=== PATIENT | female | born 1965 | race Caucasian/White ===

== ENCOUNTER 2017-08-21 17:46 | Emergency (ER) | payer BC, OTHER ==
[~2017-08-21] VITALS: Ht 160 cm; Wt 96.5 kg
[~2017-08-21 17:46] MED LIST: ELAVIL50 MG PO; FIORICET,ESG1 TABLET PO; PREVACID 24HR15 MG PO; REGLAN10 MG PO; WELLBUTRIN100 MG PO
[2017-08-21 18:02] VITALS: BP 131/85
[2017-08-21 18:31] LABS: HEMATOCRIT 42.8 % (36.0-46.0); HEMOGLOBIN 14.8 G/DL (11.9-15.5); MCHC 34.6 G/DL (30.0-36.0); MCV 89.5 FL (83-99); PLATELET COUNT 295 K/uL (156-360); RBC DIS.WIDTH-CV 12.8 % (11.8-14.6); RBC DIS.WIDTH-SD 42.1 % (39-53); RED BLOOD COUNT 4.78 M/uL (3.80-5.20); WHITE BLOOD COUNT 13.8 K/uL (4.1-10.2)
[2017-08-21 18:40] LABS: CHLORIDE 106 mEq/L (99-109); SODIUM 142 mEq/L (136-147)
[2017-08-21 18:42] LABS: GLUCOSE 115 mg/dL (70-99)
[2017-08-21 18:46] LABS: CREATININE 0.9 mg/dL (0.6-1.3); GFR ESTIMATE (CALCULATED) > 59 mL/min/
[2017-08-21 18:47] LABS: UREA NITROGEN (BUN) 10 mg/dL (9-23)
[2017-08-21 18:50] LABS: TROP-I INTERPRETATION NEGATIVE; TROPONIN-I 0.04 ng/mL (0.0-0.30)
== END 2017-08-21 19:51 | disposition left against medical advice (07) ==
LOC: EME 17:46
DX: R07.9 Chest pain, unspecified (principal); M54.2 Cervicalgia; M25.512 Pain in left shoulder; M25.511 Pain in right shoulder; Z53.21 Procedure and treatment not carried out due to patient leaving prior to being seen by health care provider
CPT/HCPCS: 71046; 80048; 84484; 85027; 93005

== ENCOUNTER 2017-08-30 16:27 | Emergency (ER) | payer SELFPAY ==
[~2017-08-30] VITALS: Ht 160 cm; Wt 106.1 kg
[2017-08-30 16:46] LABS: BASOPHIL (%) 0.9 % (0-1); BASOPHIL COUNT 0.1 K/uL (0-0.1); EOSINOPHIL (%) 3.8 % (0-5); EOSINOPHIL COUNT 0.4 K/uL (0-0.3); HEMATOCRIT 41.7 % (36.0-46.0); HEMOGLOBIN 14.2 G/DL (11.9-15.5); IMMATURE GRANULOCYTE (%) 0.4 % (0.0-0.7); LYMPHOCYTE (%) 37.9 % (15-42); LYMPHOCYTE COUNT 4.2 K/uL (1.0-2.8); MCHC 34.1 G/DL (30.0-36.0); MCV 88.2 FL (83-99); MONOCYTE (%) 5.8 % (3-12); MONOCYTE COUNT 0.6 K/uL (0-0.8); NEUTROPHIL (%) 51.2 % (45-76); NEUTROPHIL COUNT 5.6 K/uL (1.8-6.4); PLATELET COUNT 292 K/uL (156-360); RBC DIS.WIDTH-CV 12.9 % (11.8-14.6); RBC DIS.WIDTH-SD 41.8 % (39-53); RED BLOOD COUNT 4.73 M/uL (3.80-5.20)
[2017-08-30 17:01] LABS: CHLORIDE 103 mEq/L (99-109); POTASSIUM 4.7 mEq/L (3.7-5.4); SODIUM 140 mEq/L (136-147)
[2017-08-30 17:02] LABS: MAGNESIUM 2.1 mg/dL (1.3-2.7)
[2017-08-30 17:03] LABS: GLUCOSE 122 mg/dL (70-99); TOTAL PROTEIN 7.1 g/dL (6.4-8.3)
[2017-08-30 17:05] LABS: TOTAL BILIRUBIN 0.3 mg/dL (0.0-1.0)
[2017-08-30 17:07] LABS: ALKALINE PHOSPHATASE 81 IU/L (3-129); CREATININE 0.9 mg/dL (0.6-1.3); GFR ESTIMATE (CALCULATED) > 59 mL/min/
[2017-08-30 17:08] LABS: UREA NITROGEN (BUN) 12 mg/dL (9-23)
[2017-08-30 17:09] LABS: AST (GOT) 20 IU/L (2-34)
[2017-08-30 17:10] LABS: ALT (GPT) 28 IU/L (3-49)
[2017-08-30 17:12] LABS: TROP-I INTERPRETATION NEGATIVE; TROPONIN-I 0.14 ng/mL (0.0-0.30)
[2017-08-30 20:41] VITALS: BP 144/96
[2017-08-31] MEDS ORDERED: MELOXICAM7.5 MG PO (11:36)
== END 2017-08-30 20:42 | disposition home or self-care (01) ==
LOC: EME 16:27
PROVIDERS: Emergency Medicine
DX: R07.9 Chest pain, unspecified (principal); K21.9 Gastro-esophageal reflux disease without esophagitis; F17.200 Nicotine dependence, unspecified, uncomplicated; K76.0 Fatty (change of) liver, not elsewhere classified; Z88.5 Allergy status to narcotic agent; Z88.2 Allergy status to sulfonamides
CPT/HCPCS: 71046; 80053; 83735; 84484; 85025; 93005; 99281; 99284

== ENCOUNTER 2017-08-31 09:17 | Inpatient (IN) | payer OTHER ==
[~2017-08-31] VITALS: Ht 160 cm; Wt 98.9 kg
[2017-08-31 09:44] LABS: HEMATOCRIT 41.6 % (36.0-46.0); HEMOGLOBIN 14.5 G/DL (11.9-15.5); MCH 30.1 PG (29.0-34.0); MCHC 34.9 G/DL (30.0-36.0); MCV 86.5 FL (83-99); PLATELET COUNT 293 K/uL (156-360); RBC DIS.WIDTH-CV 12.5 % (11.8-14.6); RBC DIS.WIDTH-SD 39.9 % (39-53); RED BLOOD COUNT 4.81 M/uL (3.80-5.20); WHITE BLOOD COUNT 9.8 K/uL (4.1-10.2)
[2017-08-31 09:52] LABS: CHLORIDE 107 mEq/L (99-109); POTASSIUM 4.1 mEq/L (3.7-5.4); SODIUM 138 mEq/L (136-147)
[2017-08-31 09:53] LABS: GLUCOSE 107 mg/dL (70-99)
[2017-08-31 09:57] LABS: CREATININE 0.8 mg/dL (0.6-1.3); GFR ESTIMATE (CALCULATED) > 59 mL/min/
[2017-08-31 09:58] LABS: UREA NITROGEN (BUN) 11 mg/dL (9-23)
[2017-08-31 10:06] LABS: TROP-I INTERPRETATION INDETERMINATE; TROPONIN-I 0.37 ng/mL (0.0-0.30)
[2017-08-31 10:47] LABS: INTER. NORMALIZED RATIO 1.1
[2017-08-31 10:50] LABS: PTT 30.9 SEC (25-37)
[2017-08-31] MEDS ORDERED: MELOXICAM7.5 MG PO (11:36)
[2017-08-31 13:00] VITALS: BP 177/76
[2017-08-31 18:03] LABS: TROP-I INTERPRETATION INDETERMINATE; TROPONIN-I 0.52 ng/mL (0.0-0.30)
[2017-08-31 18:45] LABS: D-DIMER ELISA < 150.00 ng/mLDDU (<230)
[2017-08-31 20:00] VITALS: BP 129/79
[2017-08-31 20:51] LABS: CREATINE KINASE 104 IU/L (1-294); TOTAL CK 104 IU/L (1-294)
[2017-08-31 20:52] LABS: TROP-I INTERPRETATION POSITIVE; TROPONIN-I 1.07 ng/mL (0.0-0.30)
[2017-08-31 21:51] LABS: CK-MB 8.1 ng/mL (0.0-4.9); CKMB RELATIVE INDEX 7.8 (0.0-3.9)
[2017-08-31 23:21] VITALS: BP 133/74
[2017-09-01 03:21] VITALS: BP 132/82
[2017-09-01 07:51] LABS: BASOPHIL (%) 0.9 % (0-1); BASOPHIL COUNT 0.1 K/uL (0-0.1); EOSINOPHIL COUNT 0.5 K/uL (0-0.3); HEMOGLOBIN 15.1 G/DL (11.9-15.5); IMMATURE GRANULOCYTE (%) 0.4 % (0.0-0.7); LYMPHOCYTE (%) 32.1 % (15-42); LYMPHOCYTE COUNT 3.6 K/uL (1.0-2.8); MCH 29.7 PG (29.0-34.0); MCHC 33.6 G/DL (30.0-36.0); MCV 88.4 FL (83-99); MONOCYTE (%) 8.4 % (3-12); NEUTROPHIL (%) 54.2 % (45-76); NEUTROPHIL COUNT 6.2 K/uL (1.8-6.4); PLATELET COUNT 324 K/uL (156-360); RBC DIS.WIDTH-CV 12.9 % (11.8-14.6); RBC DIS.WIDTH-SD 41.9 % (39-53); RED BLOOD COUNT 5.09 M/uL (3.80-5.20); WHITE BLOOD COUNT 11.3 K/uL (4.1-10.2)
[2017-09-01 07:52] VITALS: BP 117/64
[2017-09-01 08:20] LABS: TROP-I INTERPRETATION POSITIVE; TROPONIN-I 1.72 ng/mL (0.0-0.30)
[2017-09-01 08:22] LABS: CHLORIDE 103 MEQ/L (99-109); CREATINE KINASE 193 IU/L (1-294); CREATININE 0.9 MG/DL (0.6-1.3); GFR ESTIMATE (CALCULATED) > 59 mL/min/; GLUCOSE 111 mg/dL (70-99); HDL CHOLESTEROL 26 MG/DL (Desirable>=50); LDL CHOLESTEROL 101 mg/dL (Desirable<100); NON-HDL CHOLESTEROL 167 mg/dL (Desirable<160); POTASSIUM 4.4 MEQ/L (3.7-5.4); SODIUM 138 MEQ/L (136-147); TOTAL CHOLESTEROL 193 mg/dL (Desirable<200); TOTAL CK 193 IU/L (1-294); TRIGLYCERIDES 332 MG/DL (Normal: <150); UREA NITROGEN (BUN) 11 mg/dL (9-23)
[2017-09-01 09:58] LABS: CKMB RELATIVE INDEX 8.2 (0.0-3.9)
[2017-09-01 10:02] LABS: CK-MB 15.9 ng/mL (0.0-4.9)
[2017-09-01] MEDS ORDERED: PRAVASTATIN SOD80 MG PO (11:02)
[2017-09-01] MEDS ORDERED: LOPRESSOR25 MG PO (11:02)
[2017-09-01] MEDS ORDERED: NICOTINE PATCH1 EAC2 TD (11:02)
[2017-09-01] MEDS ORDERED: LOSARTAN POTASS25 MG PO (11:03)
[2017-09-01] MEDS ORDERED: ASPIR-LOW81 MG PO (11:03)
[2017-09-01] MEDS ORDERED: EFFIENT10 MG PO (11:04)
== END 2017-09-01 14:01 | disposition home or self-care (01) | DRG 247 ==
LOC: EME 09:17 → 4EAST 11:01 → EDOF 11:01 → ENRESERV 11:03 → 4EAST 13:01 → ENPENDDIS 09-01 → 4EAST 09-01 14:01
PROVIDERS: Emergency Medicine; Internal Medicine Interventional Cardiology; Nurse Practitioner Family
DX: I21.4 Non-ST elevation (NSTEMI) myocardial infarction (principal); I25.110 Atherosclerotic heart disease of native coronary artery with unstable angina pectoris; I10 Essential (primary) hypertension; F17.210 Nicotine dependence, cigarettes, uncomplicated; E66.9 Obesity, unspecified; E78.5 Hyperlipidemia, unspecified; D71 Functional disorders of polymorphonuclear neutrophils; I34.0 Nonrheumatic mitral (valve) insufficiency; K21.9 Gastro-esophageal reflux disease without esophagitis; Z68.38 Body mass index [BMI] 38.0-38.9, adult; Z90.710 Acquired absence of both cervix and uterus; Z79.82 Long term (current) use of aspirin; Z88.2 Allergy status to sulfonamides; Z88.5 Allergy status to narcotic agent; Z83.3 Family history of diabetes mellitus; Z82.49 Family history of ischemic heart disease and other diseases of the circulatory system
CPT/HCPCS: 36415; 71046; 80048; 80053; 80061; 82550; 82550 91; 82553; 83036; 84484; 85025; 85027; 85347; 85379; 85610; 85730; 93005; 93306; 99281; 99285; C1725; C1769; C1874; C1887; J0461; J1644; J1940; J2060; J2250; J2405; J3010